=== PATIENT | female | born 2005 | race Caucasian/White ===

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

== ENCOUNTER 2023-03-29 05:59 | Day surgery (SDC) | payer BC, SELFPAY ==
--- NOTE | 2023-03-28 18:24 | W.ANESPRE ---
General Info Date of Service Date Performed: 03/29/23 Height: 5 ft 3 in Weight: 64.41 kg Body Mass Index (BMI): 25.1 Surgical Procedure: Operation Date: 03/29/23 07:50 Proposed Procedure Side Surgeon p Revision Hip Arthroscopy w/Labral Debridement VS Revision Repair and Possible Femoroplasty Right Albert Morrison MD Meds Allergies and Home Medications Allergies Allergy/AdvReac Type Severity Reaction Status Date / Time pollen extracts Allergy Intermediate Verified 03/29/23 06:13 celebrex AdvReac Intermediate Other (See Uncoded 03/28/23 10:01 Comment) Home Medication Medication Instructions Recorded acetaminophen 500 mg tablet 500 mg PO PRN PRN 02/25/19 norgestimate 0.18 mg/0.215 mg/0.25 1 tab PO DAILY 01/17/20 mg-ethinyl estradiol 25 mcg tablet (Tri-Lo-Chiqui) multivitamin 1 tab PO DAILY 09/22/20 sumatriptan succinate 25 mg tablet 25 mg PO PRN PRN 07/21/21 (Imitrex) Current Visit Medications: Current Medications Generic Name Dose Route Start Last Admin Trade Name Freq PRN Reason Stop Dose Admin Ringer's Solution 1,000 mls @ 30 mls/hr 03/29/23 06:00 IV 03/29/23 23:59 INFUSION TU Cefazolin Sodium/Dextrose 2 gm in 50 mls @ 100 mls/hr 03/29/23 06:00 Ancef Duplex IVPB 03/29/23 23:59 PREOP TU IV Miscellaneous Supplies 1 each 03/29/23 06:00 Iv Access IV 03/29/23 23:59 DIRECTED TU Sodium Chloride 0 ml 03/29/23 06:00 Normal Saline Flush 10 Ml Syr IV 03/29/23 23:59 PRN PRN Sodium Chloride 0 ml 03/29/23 06:00 Normal Saline 10 Ml Vial IJ 03/29/23 23:59 DIRECTED PRN Sterile Water 0 ml 03/29/23 06:00 Water,Injection,Sterile 10 Ml Vial IJ 03/29/23 23:59 DIRECTED PRN PFSH Active Problems Active Problems: Problem Status Onset Code Labral tear of right hip joint 01/17/20 S73.191A Bacteremia R78.81 Febrile urinary tract infection N39.0 Medical History Medical History Femoral acetabular impingement H/O multiple concussions Migraine headache without aura Seasonal allergies Surgical History Surgical History (Updated 03/29/23 @ 06:14 by John Frankel) History of arthroscopy of hip Tobacco Smoking/Tobacco Use Status: Never Alcohol Alcohol Intake: never Substance Use Substance use: Never Substance use type: does not use Vital Signs and Lab Results Vital Signs Most Recent Vital Signs in EMR: Temp Pulse Resp BP Pulse Ox 36.6 C 80 16 113/64 98 03/29/23 06:16 03/29/23 06:16 03/29/23 06:16 03/29/23 06:16 03/29/23 06:16 Lab Results Blood Type / Crossmatch: No Data to Display Complete Blood Count: No Data to Display Complete Metabolic Panel: No Data to Display Liver Function Panel: No Data to Display Coagulation Panel: No Data to Display Cardiac Panel: No Data to Display Arterial Blood Gas: No Data to Display Venous Blood Gas: No Data to Display Pancreas Panel: No Data to Display Thyroid Panel: No Data to Display Infectious Disease: No Data to Display Blood Cultures: No Data to Display Toxicology Panel: No Data to Display Panel: No Data to Display Imaging and Studies Imaging and Studies Study information below may be from another EMR and interpreted by another provider. Please see original notes in EMR for more complete details. EKG Summary: 06/21: sinus. Echocardiogram Summary: 08/23: LVEF 65%, no sig valve issues. RVSP 26 mmhg. Anesthesia Assessment and Plan Anesthesia History Personal History: No History of Anesthesia Complications Family History: No Family History of Anesthesia Complications Exercise Tolerance Exercise Tolerance: Metabolic Equivalents>4 Cardiac & Pulmonary Exam Cardiac Exam: Normal S1/S2 Heart Sounds Pulmonary Exam: Clear Bilateral Breath Sounds Implantable Cardiac Device Does patient have a Pacemaker or an ICD?: No Airway Exam Known Difficult Airway: No Mallampati Class: 2 Mouth Opening: Normal (> 3cm) Thyromental Distance: Greater than 3 cm Neck Range of Motion: Full ROM Neck Circumference: Normal Teeth Condition: Normal Dentition ASA Classification ASA Score: ASA 1 Emergency Case?: No NPO Status NPO Status: NPO Clears >2 hours, Solids >8 hours Status Status: Negative HCG Anesthesia Plan Resuscitation Status: Full Code Anesthesia Technique: General Anesthesia Airway Planned: Endotracheal Tube Pain Management: Surgeon and patient request nerve block Monitors Used: Standard Monitors Preoperative Comments:: 17 yo female for hip arthroscopy. Sig PMHx: migraine (imitrex), previous concussions, never smoker, Previous Anes: - hip scope, prop/ket/dexmed, KASIE (pain 5/10 on discharge), singh 2 grade 1, easy mask.
[2023-03-29] VITALS (11 sets, daily range): BP systolic 97–113; BP diastolic 52–68; PULSE 72–91; RESP 14–20; TEMP 36.3–36.7; O2SAT 98–100; BMI 25.1
[2023-03-29] MEDS: Lactated Ringers 1,000 ML 30 ML IV (06:40)
--- NOTE | 2023-03-29 07:03 | W.ANESNERVE ---
Nerve Block Single Injection Procedure Date and Time Date Performed: 03/29/23 Procedure Start: 07:40 Location Where Procedure Performed Procedure Location: Operating Room Procedure Stop: 07:43 Reason Performed: Postoperative Analgesia Requesting Provider: Albert Morrison Timeout Performed Timeout Performed: Yes Monitoring Used ECG, Blood Pressure and SpO2 Sterility Sterility: Hand Hygiene, Surgical Cap, Surgical Mask, Sterile Gloves and Chlorhexidine Sedation Given During Procedure Sedation Given (Indicate Dose Given): No Sedation given Patient Mental Status Patient Mental Status: Performed under general anesthesia Nerve Block 1st Nerve Block: Laterality: Right Block Type: KASIE Ultrasound Image Saved?: Yes Needle / Catheter Used: 100mm SonoPlex II Local Anesthetic Bolus (Indicate Dose Given): Bupivacaine 0.375% Dose:: 15 mL Additives (Indicate Dose Given): Epinephrine to make 1:400,000 (2.5mcg/ml) Dose:: 50 mcg and Precedex Dose:: 40 mcg Ultrasound: Sterile probe cover and gel used Nerve Stimulator: Not Used Paresthesia: None Procedure Tolerated: No Complications Procedure Outcome: Successful Performed By: Devonte Gorman
--- NOTE | 2023-03-29 07:16 | ROE_ITS ---
Date of service: 03/29/23 Time of Service: 07:30 Operative Note Operative Note DATE OF PROCEDURE: 03/29/23 PRE-OP DIAGNOSIS: Right hip 1. Recurrent labral tear POST-OP DIAGNOSIS: same PROCEDURE: Right hip 1. Arthroscopic revision labral repair, CPT# 87708 SURGEON: Albert Morrison CONSTRUCTION PROJECT COORDINATOR: Abby Wood ANESTHESIA TYPE: Local By Surgeon, General LMA/ETT and Primary Nerve Block (KASIE) Refer to Anesthesia Record ESTIMATED BLOOD LOSS: 5 PATHOLOGY: none sent COMPLICATIONS: None Patient was transported to: PACU Patient's condition: stable Implants: 1.8 mm knotless FiberTak x2 Indications: Please see complete medical record for details. Findings: Medium sized largely non-displaced, anterior to anterior superior labral tear adjacent to the chondral junction. Minimal anterior and anterior superior labral fraying at the tear centrally. Intact articular cartilage throughout except for small bruise partially healed adjacent to this surgical area. No significant CAM lesion or femoroacetabular impingement. Procedure Description: In the operating room, general and regional anesthesia were induced. The patient was positioned supine on the [place] table. All bony prominences were well-padded. Preoperative antibiotics were administered. The correct patient, procedure, and side of the procedure were all verified prior to incision. 10 cc of 1% lidocaine containing epinephrine was infiltrated about the previously used anterolateral and modified mid anterior portal sites. Fluoroscopically, an anterolateral portal was established with hip under about 1 cm distraction. Traction start time as noted. Through the spinal needle, a nitinol wire was inserted and the needle removed. An 11 blade was used to create a portal sized incision about the Nitinol wire. A small 4 mm dilator was passed atraumatically over the nitinol wire through the capsule into the hip joint. The nitinol wire was removed. A 6 mm dilator was then passed over the smaller one into the hip joint and the initial dilator removed. The blunt end of a switching stick was then passed into the hip joint and the last dilator removed. The camera sleeve was then inserted over the switching stick, the switch to removed, and the arthroscope attached to the camera sleeve. An initial dry arthroscopy of the hip joint confirmed appropriate viewing portal location about the equator laterally. Using a combination of fluoroscopic guidance and arthroscopic triangulation a modified mid anterior portal was established in a similar fashion with a spinal needle and sequential dilators. Care was taken to ensure the portal was in an appropriate position and outside the labrum. A banana blade was inserted anteriorly over half pipe. The capsule was released distal to the labrum working towards the anterolateral portal. The camera was then switched to the anterior portal, the anterolateral portal location was confirmed to be appropriate, and the banana blade brought in the anterolateral portal and another capsular release performed. The intraportal capsulotomy did not need to be completely connected as there was good exposure and mobility anteriorly for working as well as viewing from anterior lateral. There was remarkably little to no capsular scarring or contracture from the prior surgery. Prior suture in place circumferentially centrally at the tear, which was relatively nondisplaced but demonstrate increased mobility at the chondral labral junction with positive wave sign extending a centimeter anteriorly and superiorly. Lightly debrided minor labral fraying. Acetabular rim cleared of soft tissue as needed for repair. Elevators and rasps used to prepare the labrum as best possible to optimize healing and this likely chronic nonhealed labral setting. The curved and straight Arthrex hip FiberTak 1.8 mm drill guides were used to localize placement of an anchor anteriorly and then superiorly to the already centrally placed pre-existing anchor. An additional third anchor was attempted centrally but there was not sufficient space given the pre-existing anchors. In total 5 locations were drilled or partially drilled with only 2 anchors completely deployed and used for inversion circumferential repair sutures. The initial site through the straight guide was to close to the cartilage margin and was only partially drilled. The curved guide was used to consider an anchor anterior superiorly slightly more proximally and more superiorly but as sometimes happens the anchors did not deploy properly through the curve in the guide. Labral repair looked good it was stable through probing testing with out the chondral labral junction mobility. There was no femoral head or neck lesion to indicate need for femoroplasty. Under direct visualization traction was gradually released at 1 hour 43 minutes. The femoral head neck junction was inspected about the zone of labral injury. The labral repair demonstrated good suction seal. There was no significant chondral injury, CAM lesion, or impingement on the labrum. The decision was made to omit any femoroplasty. The limited capsular release had well apposed tissue ends and were not formally closed. The hip was drained of arthroscopic fluid. An additional 10 cc of 1% lidocaine containing epinephrine was infiltrated about both portal sites. 3-0 Monocryl was used to close each incision in a buried portal fashion. Steri- Strips, Xeroform, 4 x 4 gauze, and ABD and tape used to secure the dressing. The patient awoke from anesthesia without complication and was transferred to the recovery room in a stable condition.
--- NOTE | 2023-03-29 07:17 | W.PM.DSUDISC ---
Date of service: 03/29/23 Time of Service: 12:00 Discharge Plan Disposition Patient Disposition: Home Condition: Stable Discharge Details Attending Provider: Albert Morrison Primary Care Provider: Domenica Bach Home Meds and New Rx's Prescriptions: New naproxen 250 mg tablet 250 - 500 mg PO BID PRNQty: 40 0RF Rx Instructions: take with a meal aspirin 81 mg tablet,delayed release (DR/EC) 81 mg PO DAILY 14 Days Qty: 14 0RF oxycodone 5 mg tablet 5 - 10 mg PO Q4H MDD 30 mg PRN (Reason: moderate to severe pain) Qty: 12 0RF Continued acetaminophen 500 mg Tablet 500 mg PO PRN PRN norgestimate-ethinyl estradiol [Tri-Lo-Chiqui] 0.18/0.215/0.25 mg-25 mcg Tablet 1 tab PO DAILY multivitamin Tablet 1 tab PO DAILY sumatriptan succinate [Imitrex] 25 mg tablet 25 mg PO PRN PRN Patient Comments: TAKE 1 TABLET ORALLY AT FIRST SIGN OF HEADACHE. MAY REPEAT DOES IN 2 HOURS IF NO RESPONSE. MAXIMUM DAILY DOSE = 2 Discharge Instructions Additional Instructions: Surgery: Right hip arthroscopy with revision labral repair Activity: Protected weight bearing (less than 50%) with crutches for 4 weeks. Avoid deep hip flexion or hip extension for 6 weeks. No horseback riding or sports for 3 months. A physical therapy prescription will be sent electronically to start in about 3 weeks. Prescriptions: Aspirin 81 mg take 1 daily to prevent a blood clot for 14 days Naproxen 250 mg take 1-2 every 12 hours with a meal as needed for moderate pain Oxycodone 5 mg take 1-2 every 4-6 hours as needed for severe pain You may use [id number] Tylenol (acetaminophen) as needed for mild pain. These pain medications may be taken all at once or in different combinations as needed. Also, recommend Colace (docusate) as a stool softener as surgery and pain medicine cause constipation. You may try [id number]-[id number] diphenhydramine (Benadryl) 25-50 mg nightly as a sleep aid Dressings: Leave dressing in place for 3 days. May then remove and leave open to air or cover incisions with Band-Aids. Leave the sticky Steri-Strips in place until they fall off or remove them after you shower. May shower after 5 days. Follow-up: 10-[address] Morrison You may take off the leg compression stockings this evening at home. You may also leave them on a few days longer if you have a history of leg swelling or edema. Let us know right away if you develop any redness, drainage, fevers, chest pain, or trouble breathing. Do not drink alcohol or drive for at least 24 hours after anesthesia. Please call the office during business hours with any questions or concerns. Discharge Orders Discharge Orders: Discharge Order (Routine); Ordered 03/29/23 Ordered By: Albert Morrison DS: Diagnosis Discharge Diagnosis (1) Labral tear of right hip joint: Status: Acute
[2023-03-29] MEDS: ceFAZolin 2 GM/50 ML BAG IVPB (07:34)
[2023-03-29] MEDS: Bupivacaine 0.25% Pres-Free 30 ML VIAL (08:16)
[2023-03-29] MEDS: EPINEPHrine 30 MG/30 ML VIAL (08:16)
--- NOTE | 2023-03-29 10:19 | DI.RAD_ITS ---
Exam(s) XR HIP RT IN OR EXAM: XR HIP RT IN OR CLINICAL HISTORY: Labral tear of right hip joint TECHNIQUE: 2D and realtime digital imaging was performed. CONTRAST MATERIAL: Refer to procedure report. COMPARISON: MR PELVIS ADULT from 07/30/2022 FINDINGS: Fluoroscopy was provided for Dr. Morrison during the performance of a labral tear repair. Please refe r to the procedure report for complete details. Ka,r=5.75 mGy IMPRESSION: RADIATION DOSE DELIVERED:
[2023-03-29] MEDS: Normal Saline 10 ML VIAL IJ (10:54)
[2023-03-29] MEDS: HYDROmorphone 2 MG/ML SYR IVP ×3 (10:54→11:23)
--- NOTE | 2023-03-29 11:12 | W.ANESPOSTOP ---
Postoperative Evaluation Date, Time and Location Date Performed: 03/29/23 Time Performed: 11:12 Patient Location: PACU Vital Signs Most Recent Imported Vital Signs: Most Recent Vital Signs Temp Pulse Resp BP Pulse Ox 36.7 C 86 14 107/57 L 99 03/29/23 11:10 03/29/23 11:10 03/29/23 11:10 03/29/23 11:10 03/29/23 11:10 Pain Score Most Recent Pain Score: Most Recent Pain Score Pain Level 8 03/29/23 11:10 Assessment Mental Status: Arousable with meaningful communication Airway and Respiratory Function: Patent airway with normal (patient baseline) respiratory exam Cardiovascular Function: Hemodynamically Stable Hydration Status: Adequately Hydrated Nausea & Vomiting: No Nausea or Vomiting Pain: Pain is Moderate or Severe Postoperative Pain Management: Pain being addressed with medication Peripheral Nerve Block: Regional nerve block not resolved at time of post operative discharge
[2023-03-29] MEDS: traMADol 50 MG TAB PO (12:12)
== END 2023-03-29 13:50 | disposition home or self-care (01) ==
PROVIDERS: PCP Physician Assistant Medical; Visit Provider Student in an Organized Health Care Education/Training Program
PROC: (CPT 29860; principal; 2023-03-29 07:30)
DX: S73.191A Other sprain of right hip, initial encounter (principal); X58.XXXA Exposure to other specified factors, initial encounter
CPT/HCPCS: 29916; 76942; 81025; 73501; J0131; J0690; J1100; J1170; J1885; J2001; J2250; J2405; J3475

== ENCOUNTER 2023-08-09 14:53 | Outpatient (REF) | payer BC, SELFPAY ==
[2023-08-09 20:44] LABS: Ferritin 67 ng/mL (8-252); Vitamin B12 337 pg/mL (193-986)
== END 2023-08-09 14:54 | disposition home or self-care (01) ==
LOC: NCHCN 14:53
PROVIDERS: PCP Physician Assistant Medical; Visit Provider Physician Assistant Medical
DX: M25.59 Pain in other specified joint (principal)
CPT/HCPCS: 82607; 82728

== ENCOUNTER 2023-08-12 15:03 | Outpatient (REF) | payer BC, SELFPAY ==
[2023-08-12 15:37] LABS: ESR 4 mm/hr (0-20)
[2023-08-12 16:01] LABS: C-Reactive Protein < 0.50 mg/dL (<or=0.5)
[2023-08-12 21:47] LABS: Rheumatoid Factor <8.6 IU/mL (<12.0)
[2023-08-13 10:59] LABS: Lyme Ab w Rflx to Lyme Confirm Negative (Negative)
[2023-08-13 14:02] LABS: ANA Interpretation Negative (Negative)
[2023-08-14 23:00] LABS: Anaplasma phagocytophilum Negative (Negative); B. miyamotoi PCR Negative (Negative); Babesia divergens/MO-1 Negative (Negative); Babesia duncani Negative (Negative); Babesia microti Negative (Negative); Ehrlichia chaffeensis Negative (Negative); Ehrlichia ewingii/canis Negative (Negative); Ehrlichia muris eauclairensis Negative (Negative)
[2023-08-16 08:57] LABS: Cyclic Citrullinated Peptide <2.5 U/mL (<5.0)
== END 2023-08-12 15:04 | disposition home or self-care (01) ==
LOC: NCHCN 15:03
PROVIDERS: PCP Physician Assistant Medical; Visit Provider Physician Assistant Medical
DX: M25.59 Pain in other specified joint (principal)
CPT/HCPCS: 85652; 86200; 87798; 86038; 86140; 86431; 86618

== ENCOUNTER 2023-12-10 15:35 | Outpatient (CLI) | payer BC, SELFPAY ==
--- NOTE | 2023-12-10 10:15 | DI.RAD_ITS ---
Exam(s) XR HIP RT AP LAT ONLY EXAM: XR HIP RT AP LAT ONLY CLINICAL HISTORY: RIGHT HIP PAIN. TECHNIQUE: 2D digital imaging was performed of the right hip. Two images were obtained. AP and late ral right hip views were obtained. COMPARISON: CR XR HIP RT AP LAT ONLY from 07/10/2022 FINDINGS: BONES: No acute fracture is present. No bony destructive lesion is seen. JOINTS: No dislocation present. The joint space is well maintained. SOFT TISSUE: Normal. IMPRESSION: Unremarkable radiographs of the right hip. DATA REPOSITORY: RADIATION DOSE DELIVERED:
== END 2023-12-10 15:36 | disposition home or self-care (01) ==
PROVIDERS: PCP Physician Assistant Medical; Visit Provider Student in an Organized Health Care Education/Training Program
DX: S73.191A Other sprain of right hip, initial encounter (principal); X58.XXXA Exposure to other specified factors, initial encounter
CPT/HCPCS: 73502